=== PATIENT | female | born 1990 | race Caucasian/White ===

== ENCOUNTER → 2024-08-13 10:51 | Outpatient (BNVA) | payer OTHER, SELFPAY | PROVIDERS: PCP Nurse Practitioner Family; Visit Provider Nurse Practitioner Family | DX: Z00.00 Encounter for general adult medical examination without abnormal findings (principal); Z23 Encounter for immunization; G43.109 Migraine with aura, not intractable, without status migrainosus; F43.10 Post-traumatic stress disorder, unspecified; I49.3 Ventricular premature depolarization; H61.23 Impacted cerumen, bilateral; Z91.410 Personal history of adult physical and sexual abuse; Z80.0 Family history of malignant neoplasm of digestive organs | CPT/HCPCS: 90471; 90715; 96127 ==

== ENCOUNTER 2024-09-25 13:24 | Outpatient (REF) | payer SELFPAY ==
[2024-09-25 14:42] LABS: Hematocrit 37.1 % (37.0-47.0); Mean Corpuscular Volume 82.8 fL (80.0-98.0); Platelet Count 308 X10*3/uL (160-400); Red Blood Count 4.48 X10*6/uL (4.20-5.50); Red Cell Distribution Width 11.8 % (11.0-16.0); White Blood Count 5.8 X10*3/uL (4.8-10.8)
[2024-09-25 14:48] LABS: Estimated Average Glucose 85 mg/dL; Hemoglobin A1c % 4.6 % (<6.0); Total Hemoglobin (HGBA1C) 3397.5164 umol/L
[2024-09-25 15:45] LABS: Folate 11.6 ng/mL (> or = 4.0); Vitamin B12 582 pg/mL (200-900)
[2024-09-25 15:48] LABS: Alanine Aminotransferase 33 U/L (0-31); Albumin Level 4.7 g/dL (3.5-5.0); Alkaline Phosphatase 35 U/L (39-117); Anion Gap 11 (12-20); Aspartate Amino Transferase 26 U/L (5-31); Bilirubin Total 3.3 mg/dL (0.0-1.0); Blood Urea Nitrogen 11 mg/dL (9-16); Carbon Dioxide 26 mmol/L (22-29); Chloride 105 mmol/L (96-108); Cholesterol 229 mg/dL (<200); Estimated Glomerular Filt Rate > 60; Glucose Random 86 mg/dL (60-115); HDL Cholesterol 56 mg/dL (>40); LDL Cholesterol Calculated 149 mg/dL (<100); Potassium 3.8 mmol/L (3.3-5.1); Sodium 138 mmol/L (135-145); TSH reflex Free T4 0.87 uIU/mL (0.32-4.0); Total Protein 8.1 g/dL (6.5-8.0); Triglycerides 124 mg/dL (<150); Vitamin D 25-OH Total 13.9 ng/mL (>30)
[2024-09-25 19:11] LABS: Creatinine Urine 35.32 mg/dL; Microalbumin Urine < 5.0 mg/L
== END 2024-09-25 13:25 | disposition home or self-care (01) ==
LOC: HO.WFDLDS 13:24
PROVIDERS: Visit Provider Nurse Practitioner Family
DX: Z00.00 Encounter for general adult medical examination without abnormal findings (principal); Z13.1 Encounter for screening for diabetes mellitus
CPT/HCPCS: 36415; 80053; 80061; 82043; 82306; 82570; 82607; 82746; 83036; 84443; 85027

== ENCOUNTER 2024-09-29 14:25 | Outpatient (AMB) | payer SELFPAY ==
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
== END 2024-09-29 17:05 | disposition home or self-care (01) ==
LOC: HO.HMCFM 14:25
PROVIDERS: PCP Nurse Practitioner Family; Visit Provider Nurse Practitioner Family
DX: R17 Unspecified jaundice (principal); R79.89 Other specified abnormal findings of blood chemistry; K21.9 Gastro-esophageal reflux disease without esophagitis; E78.9 Disorder of lipoprotein metabolism, unspecified; E55.9 Vitamin D deficiency, unspecified; Z80.0 Family history of malignant neoplasm of digestive organs